=== PATIENT | female | born 1945 | race Caucasian/White ===

== ENCOUNTER → 2017-04-18 | Outpatient (CLI) | payer MEDICARE, OTHER ==
[~2017-04-18] MED LIST: ALPR1TAB10 SL; ALPR1TAB6 PO; ASCO1500 PO; ASPI-496 PO; CALC600T4 PO; CHOL100012 PO; DICL100G19 TP; Fish Oil; HYDR-3245 PO; LEVO50TA5 PO; MAGN400C PO; POTA10TA31 PO; SPIR50TA2 PO; SUMA25TA4 PO; TRIA1CAP3 PO
[2017-04-18 16:01] LABS: HEMATOCRIT 43.4 % (34.6-47.8); HEMOGLOBIN 14.5 g/dL (11.7-16.4); WHITE BLOOD COUNT 10.3 x10^3/uL (3.4-10)
[2017-04-18 16:11] LABS: BLOOD UREA NITROGEN 12 mg/dL (7-18)
[2017-04-18 16:15] LABS: ASPARTATE AMINO TRANSFERASE 13 U/L (15-37)
== END | disposition home or self-care (01) ==
LOC: STAR 14:31
PROVIDERS: ATTEND Neurological Surgery
DX: Z01.818 Encounter for other preprocedural examination (principal); I10 Essential (primary) hypertension; M43 Other deforming dorsopathies; R79.1 Abnormal coagulation profile; R82.79 Other abnormal findings on microbiological examination of urine; Z87.891 Personal history of nicotine dependence
CPT/HCPCS: 36415; 71020; 80053; 81001; 85025; 85610; 85730; 87086; 93005

== ENCOUNTER 2017-04-29 06:34 | Inpatient (IN) | payer OTHER ==
[~2017-04-29] VITALS: Ht 152.4 cm; Wt 58.2 kg
[~2017-04-29 06:34] MED LIST changes: +KETOROLAC 30 MG/1 ML ONE
[2017-04-29] MEDS ORDERED: LACTATED RINGERS 1,000 ML IV SCH (07:19)
[2017-04-29 07:24] VITALS: BP 116/77
[2017-04-29] MEDS ORDERED: KETAMINE 10 MG/ML, 20ML ONE (08:14)
[2017-04-29] MEDS ORDERED: MIDAZOLAM 1 MG/ML, 2ML ONE ×2 (08:15→12:39)
[2017-04-29] MEDS ORDERED: FENTANYL PF 100 MCG/2ML ONE ×3 (08:15→12:39)
[2017-04-29] MEDS ORDERED: PROPOFOL 10 MG/ML, 20ML ONE (08:18)
[2017-04-29] MEDS ORDERED: LIDOCAINE-MPF 2% ,5ML ONE (08:19)
[2017-04-29] MEDS ORDERED: ROCURONIUM 10 MG/ML ONE (08:20)
[2017-04-29] MEDS ORDERED: CEFAZOLIN 1,000 MG ONE (09:22)
[2017-04-29] MEDS ORDERED: ONDANSETRON 2MG/ML, 2ML ONE ×2 (09:49)
[2017-04-29] MEDS ORDERED: DEXAMETHASONE 4 MG/ML, 1ML ONE ×2 (09:50)
[2017-04-29] MEDS ORDERED: THROMBIN 5,000 UNIT VIAL TP ONE (10:11)
[2017-04-29] MEDS ORDERED: methylPREDNISolone SOD SUCC 125 MG/2 ML ONE (10:13)
[2017-04-29] MEDS ORDERED: VANCOMYCIN 1,000 MG ONE (10:13)
[2017-04-29] MEDS ORDERED: BUPIVACAINE/PF 0.5% INFIL ONE (10:16)
[2017-04-29] MEDS ORDERED: BACITRACIN 50,000 UNIT IRRIG ONE (10:16)
[2017-04-29] MEDS ORDERED: OXYcodone 5 MG/5 ML ORAL.SOL UDC PO PRN (10:30)
[2017-04-29] MEDS ORDERED: ACETAMINOPHEN 325 MG TABLET PO PRN (10:30)
[2017-04-29] MEDS ORDERED: MEPERIDINE/PF 25MG/0.5ML IVPush PRN (10:30)
[2017-04-29] MEDS ORDERED: DIAZEPAM 5 MG/ML, 2ML IVPush PRN (10:30)
[2017-04-29] MEDS ORDERED: hydrALAzine 20 MG/ML, 1ML IV PRN (10:30)
[2017-04-29] MEDS ORDERED: PROMETHAZINE 25 MG/ML, 1ML IV PRN (10:30)
[2017-04-29] MEDS ORDERED: LABETALOL 5MG/ML, 20ML IV PRN ×3 (10:30→16:30)
[2017-04-29] MEDS ORDERED: HYDROmorphone 1 MG/ML, 1ML ONE (11:38)
[2017-04-29] MEDS ORDERED: NEOSTIGMINE 1 MG/ML, 10ML ONE (11:40)
[2017-04-29] MEDS ORDERED: GLYCOPYRROLATE 0.4 MG/2 ML, 2ML ONE (11:40)
[2017-04-29] MEDS ORDERED: ACETAMINOPHEN 650 MG/20.3 ML UDC ONE (12:42)
[2017-04-29] MEDS ORDERED: OXYcodone 5 MG/5 ML ORAL.SOL UDC ONE (12:43)
[2017-04-29] MEDS ORDERED: HYDROmorphone 2 MG/ML, 1ML ONE (12:43)
[2017-04-29] MEDS ORDERED: METHOCARBAMOL 750 MG TABLET ONE (12:48)
[2017-04-29] MEDS: FENTANYL PF 100 MCG/2ML IV PRN ×2 (12:50→13:00)
[2017-04-29] MEDS: HYDROmorphone 1 MG/ML, 1ML IV PRN ×2 (12:50→13:05)
[2017-04-29] MEDS ORDERED: DIPHENHYDRAMINE 50 MG CAPSULE PO PRN (15:30)
[2017-04-29] MEDS ORDERED: PROMETHAZINE 25 MG/ML, 1ML IM PRN (15:30)
[2017-04-29] MEDS ORDERED: DIPHENHYDRAMINE 50 MG/ML, 1ML IVPush PRN (15:30)
[2017-04-29] MEDS ORDERED: HYDROcodone/APAP 10/325 MG TABLET PO PRN (15:30)
[2017-04-29] MEDS ORDERED: morphine SULFATE 10 MG/ML, 1ML IV PRN (15:30)
[2017-04-29] MEDS ORDERED: DIPHENHYDRAMINE 50 MG/ML, 1ML IM PRN (15:30)
[2017-04-29] MEDS ORDERED: BISACODYL 10 MG SUPP PR PRN (15:30)
[2017-04-29] MEDS ORDERED: HYDROcodone/APAP 5/325 TABLET PO PRN (15:30)
[2017-04-29] MEDS: NS + 20MEQ KCL 1,000 ML IV SCH (17:19)
[2017-04-29] MEDS: CEFAZOLIN PMX 1GM/50ML 50 ML IVPB SCH (17:25)
[2017-04-29 19:30] VITALS: BP 119/69
[2017-04-29] MEDS: METHOCARBAMOL 750 MG TABLET PO PRN (22:32)
[2017-04-30 00:02] VITALS: BP 90/50
[2017-04-30] MEDS: NS + 20MEQ KCL 1,000 ML IV SCH ×3 (01:30→21:05)
[2017-04-30] MEDS: CEFAZOLIN PMX 1GM/50ML 50 ML IVPB SCH (01:34)
[2017-04-30 03:30] VITALS: BP 93/57
[2017-04-30 05:22] LABS: HEMATOCRIT 31.6 % (34.6-47.8); HEMOGLOBIN 10.6 g/dL (11.7-16.4); WHITE BLOOD COUNT 11.9 x10^3/uL (3.4-10)
[2017-04-30 05:29] LABS: BLOOD UREA NITROGEN 13 mg/dL (7-18)
[2017-04-30] MEDS: LEVOTHYROXINE 50 MCG TABLET PO SCH (05:42)
[2017-04-30 07:40] VITALS: BP 92/45
[2017-04-30] MEDS: MAGNESIUM OXIDE 400 MG TABLET PO SCH (08:07)
[2017-04-30] MEDS: ASCORBIC ACID 500 MG TABLET PO SCH (08:07)
[2017-04-30] MEDS: SENNA/DOCUSATE TABLET PO SCH (08:07)
[2017-04-30] MEDS: CALCIUM CARBONATE 500 MG TABLET PO SCH (08:07)
[2017-04-30] MEDS: POTASSIUM CHLORIDE 10 MEQ TABLET.ER PO SCH (08:07)
[2017-04-30] MEDS: SPIRONOLACTONE 50 MG TABLET PO SCH (08:07)
[2017-04-30] MEDS: METHOCARBAMOL 750 MG TABLET PO PRN ×2 (08:20→16:10)
[2017-04-30] MEDS: TRIAMTERENE-HCTZ 37.5/25 MG TABLET PO SCH (09:00)
[2017-04-30] MEDS: ACETAMINOPHEN 325 MG TABLET PO SCH ×3 (09:30→21:30)
[2017-04-30] MEDS ORDERED: MORPHINE SULFATE 4 MG/ML, 1ML IV PRN (09:30)
[2017-04-30] MEDS: OXYcodone IR 5MG TABLET PO PRN ×3 (09:43→19:44)
[2017-04-30 12:40] VITALS: BP 109/65
[2017-04-30 14:57] VITALS: BP 104/61
[2017-04-30 20:25] VITALS: BP 101/61
[2017-05-01] MEDS: METHOCARBAMOL 750 MG TABLET PO PRN ×2 (01:52→10:50)
[2017-05-01] MEDS: ACETAMINOPHEN 325 MG TABLET PO SCH ×4 (02:38→21:18)
[2017-05-01] MEDS: OXYcodone IR 5MG TABLET PO PRN ×4 (05:13→18:17)
[2017-05-01] MEDS: LEVOTHYROXINE 50 MCG TABLET PO SCH (05:14)
[2017-05-01 05:21] LABS: HEMATOCRIT 33.2 % (34.6-47.8); HEMOGLOBIN 11.1 g/dL (11.7-16.4); WHITE BLOOD COUNT 11.4 x10^3/uL (3.4-10)
[2017-05-01 05:27] VITALS: BP 103/52
[2017-05-01 05:30] LABS: BLOOD UREA NITROGEN 11 mg/dL (7-18)
[2017-05-01] MEDS: NS + 20MEQ KCL 1,000 ML IV SCH ×2 (06:14→17:30)
[2017-05-01 08:58] VITALS: BP 88/49
[2017-05-01] MEDS: SPIRONOLACTONE 50 MG TABLET PO SCH (09:00)
[2017-05-01] MEDS: MAGNESIUM HYDROXIDE 8%, 30ML UDC PO PRN (09:00)
[2017-05-01] MEDS: POTASSIUM CHLORIDE 10 MEQ TABLET.ER PO SCH (09:00)
[2017-05-01] MEDS: SENNA/DOCUSATE TABLET PO SCH (09:01)
[2017-05-01] MEDS: ASCORBIC ACID 500 MG TABLET PO SCH (09:01)
[2017-05-01] MEDS: MAGNESIUM OXIDE 400 MG TABLET PO SCH (09:02)
[2017-05-01] MEDS: CALCIUM CARBONATE 500 MG TABLET PO SCH (09:02)
[2017-05-01] MEDS: TRIAMTERENE-HCTZ 37.5/25 MG TABLET PO SCH (09:02)
[2017-05-01 14:30] VITALS: BP 89/44
[2017-05-01] MEDS ORDERED: SODIUM CHLORIDE 0.9%, 500ML IVBOLUS ONE (16:00)
[2017-05-01] MEDS: ONDANSETRON 2MG/ML, 2ML IV PRN ×2 (16:32→22:56)
[2017-05-01 17:15] VITALS: BP 99/60
[2017-05-01 19:36] VITALS: BP 100/60
[2017-05-02 01:47] VITALS: BP 109/62
[2017-05-02] MEDS: ACETAMINOPHEN 325 MG TABLET PO SCH ×4 (03:30→20:53)
[2017-05-02] MEDS: NS + 20MEQ KCL 1,000 ML IV SCH ×3 (03:30→20:49)
[2017-05-02] MEDS: LEVOTHYROXINE 50 MCG TABLET PO SCH (06:10)
[2017-05-02 07:03] VITALS: BP 108/64
[2017-05-02] MEDS ORDERED: METHYLNALTREXONE 12 MG/0.6 ML SQ SCH (08:00)
[2017-05-02] MEDS: ASCORBIC ACID 500 MG TABLET PO SCH (09:00)
[2017-05-02] MEDS: SENNA/DOCUSATE TABLET PO SCH (09:00)
[2017-05-02] MEDS: MAGNESIUM OXIDE 400 MG TABLET PO SCH (09:00)
[2017-05-02] MEDS: CALCIUM CARBONATE 500 MG TABLET PO SCH (09:00)
[2017-05-02] MEDS: POTASSIUM CHLORIDE 10 MEQ TABLET.ER PO SCH (09:00)
[2017-05-02] MEDS: ONDANSETRON 2MG/ML, 2ML IV PRN (09:23)
[2017-05-02] MEDS: MAGNESIUM HYDROXIDE 8%, 30ML UDC PO PRN (09:43)
[2017-05-02] MEDS: SPIRONOLACTONE 50 MG TABLET PO SCH (09:43)
[2017-05-02] MEDS: TRIAMTERENE-HCTZ 37.5/25 MG TABLET PO SCH (09:43)
[2017-05-02] MEDS: OXYcodone IR 5MG TABLET PO PRN ×2 (13:00→20:52)
[2017-05-02] MEDS: METHOCARBAMOL 750 MG TABLET PO PRN (13:00)
[2017-05-02 13:53] VITALS: BP 118/69
[2017-05-02 20:11] VITALS: BP 107/64
[2017-05-03] MEDS: ACETAMINOPHEN 325 MG TABLET PO SCH ×2 (02:30→09:30)
[2017-05-03 03:28] VITALS: BP 102/62
[2017-05-03] MEDS: METHOCARBAMOL 750 MG TABLET PO PRN (03:28)
[2017-05-03] MEDS: OXYcodone IR 5MG TABLET PO PRN ×2 (03:28→07:22)
[2017-05-03] MEDS ORDERED: METHYLNALTREXONE 12 MG/0.6 ML SQ SCH (06:00)
[2017-05-03] MEDS: LEVOTHYROXINE 50 MCG TABLET PO SCH (06:01)
[2017-05-03 07:10] VITALS: BP 93/55
[2017-05-03] MEDS: CALCIUM CARBONATE 500 MG TABLET PO SCH (07:22)
[2017-05-03] MEDS: SPIRONOLACTONE 50 MG TABLET PO SCH (07:22)
[2017-05-03] MEDS: POTASSIUM CHLORIDE 10 MEQ TABLET.ER PO SCH (07:22)
[2017-05-03] MEDS: ASCORBIC ACID 500 MG TABLET PO SCH (07:22)
[2017-05-03] MEDS: TRIAMTERENE-HCTZ 37.5/25 MG TABLET PO SCH (07:22)
[2017-05-03] MEDS: SENNA/DOCUSATE TABLET PO SCH (07:22)
[2017-05-03] MEDS: MAGNESIUM OXIDE 400 MG TABLET PO SCH (07:22)
[2017-05-03] MEDS ORDERED: METHYLNALTREXONE 12 MG/0.6 ML SQ ONE (09:00)
[2017-05-03] MEDS: NS + 20MEQ KCL 1,000 ML IV SCH (09:30)
[2017-05-03] MEDS ORDERED: METH750T2 PO (10:55)
[2017-05-03] MEDS ORDERED: OXYC-307 PO (10:55)
== END 2017-05-03 11:07 | disposition home health service (06) | DRG 460 ==
LOC: ORIP 06:34 → 4NOR 14:29 → DCLOUNGE 05-03 10:50
PROVIDERS: ADMIT Neurological Surgery; ATTEND Neurological Surgery
PROC: 0SB20ZZ Excision of Lumbar Vertebral Disc, Open Approach (ICD-10-PCS; 2017-04-29)
PROC: 0SG00AJ Fusion of Lumbar Vertebral Joint with Interbody Fusion Device, Posterior Approach, Anterior Column, Open Approach (ICD-10-PCS; 2017-04-29)
PROC: 0QS004Z Reposition Lumbar Vertebra with Internal Fixation Device, Open Approach (ICD-10-PCS; 2017-04-29)
PROC: 01NB0ZZ Release Lumbar Nerve, Open Approach (ICD-10-PCS; principal; 2017-04-29 09:30)
DX: M43.16 Spondylolisthesis, lumbar region (principal); K56.7 Ileus, unspecified; M48.061 Spinal stenosis, lumbar region without neurogenic claudication; G43.909 Migraine, unspecified, not intractable, without status migrainosus; M19.90 Unspecified osteoarthritis, unspecified site; M79.7 Fibromyalgia; F17.210 Nicotine dependence, cigarettes, uncomplicated; M54.16 Radiculopathy, lumbar region; E03.9 Hypothyroidism, unspecified; I10 Essential (primary) hypertension; F12.10 Cannabis abuse, uncomplicated; Z90.710 Acquired absence of both cervix and uterus; Z88.6 Allergy status to analgesic agent; Z91.19 Patient's noncompliance with other medical treatment and regimen; Z88.8 Allergy status to other drugs, medicaments and biological substances; Z85.89 Personal history of malignant neoplasm of other organs and systems; Z80.8 Family history of malignant neoplasm of other organs or systems; Z82.61 Family history of arthritis
CPT/HCPCS: 36415; 72100; 74000; 80048; 82962; 83735; 85025; 86850; 86900; C1713; C1776; J0690; J1100; J1170; J1885; J2250; J2270; J2405; J2704; J2710; J3010; J3370; J3480; J3490; C1762; J2930; J7040; J7120

== ENCOUNTER 2017-11-30 13:29 | Emergency (ER) | payer OTHER ==
[~2017-11-30] VITALS: Ht 157.5 cm; Wt 49.1 kg
[~2017-11-30 13:29] MED LIST changes: -KETOROLAC 30 MG/1 ML ONE; +METH750T2 PO; +OXYC-307 PO
[2017-11-30] MEDS ORDERED: ASPIRIN 81 MG TABLET CHEW PO ONE (14:00)
[2017-11-30 14:44] LABS: BASOPHILS # (AUTO) 0.02 x10^3/uL (0-0.1); BASOPHILS % (AUTO) 0 % (0-1); EOSINOPHILS # (AUTO) 0.08 x10^3/uL (0-0.4); EOSINOPHILS % (AUTO) 1 % (1-7); HCT (SEDRATE) 40.7 % (34.6-47.8); LYMPHOCYTES # (AUTO) 1.16 x10^3/uL (1-3.4); LYMPHOCYTES % (AUTO) 16 % (22-44); MD NO; MEAN CORPUSCULAR HEMOGLOBIN 29.8 pg (27.0-34.8); MEAN CORPUSCULAR HGB CONC 33.5 g/dL (32.4-35.8); MEAN CORPUSCULAR VOLUME 88.8 fL (80-100); MEAN PLATELET VOLUME 7.7 fL (7.4-10.4); MONOCYTES # (AUTO) 0.44 x10^3/uL (0.2-0.8); MONOCYTES % (AUTO) 6 % (2-9); NEUTROPHILS # (AUTO) 5.57 x10^3/uL (1.8-6.8); NEUTROPHILS % (AUTO) 77 % (42-75); PLATELET COUNT 275 x10^3/uL (130-400); RED BLOOD COUNT 4.58 x10^6/uL (3.82-5.3); RED CELL DISTRIBUTION WIDTH 13.9 % (9.6-15.2)
[2017-11-30] MEDS ORDERED: HYDR-879 PO (14:50)
[2017-11-30] MEDS ORDERED: ASPIRIN 81 MG TABLET CHEW ONE (14:54)
[2017-11-30 14:57] LABS: ALBUMIN 3.1 g/dL (3.4-5.0); ANION GAP 7 mmol/L (5-15); CALCIUM 8.8 mg/dL (8.5-10.1); CHLORIDE 103 mmol/L (98-107)
[2017-11-30 15:02] LABS: ALANINE AMINOTRANSFERASE 17 U/L (12-78); ALKALINE PHOSPHATASE 79 U/L (45-117); BILIRUBIN,TOTAL 0.5 mg/dL (0.2-1.0); CREATININE 0.87 mg/dL (0.55-1.02); FREE T4 (FREE THYROXINE) 1.28 ng/dL (0.76-1.46); TOTAL PROTEIN 7.1 g/dL (6.4-8.2); TROPONIN I < 0.015 ng/mL (0.000-0.045)
[2017-11-30] MEDS ORDERED: VOLTAREN (15:09)
[2017-11-30 15:25] LABS: SEDIMENTATION RATE 38 mm/hr (0-20)
[2017-11-30 16:25] VITALS: BP 107/60
== END 2017-11-30 16:31 | disposition home or self-care (01) ==
LOC: ED 15:39
DX: R07.89 Other chest pain (principal); M19.012 Primary osteoarthritis, left shoulder; M19.011 Primary osteoarthritis, right shoulder; M19.071 Primary osteoarthritis, right ankle and foot; M19.041 Primary osteoarthritis, right hand; E06.9 Thyroiditis, unspecified; Z88.5 Allergy status to narcotic agent; Z88.8 Allergy status to other drugs, medicaments and biological substances
CPT/HCPCS: 36415; 71045; 80053; 83880; 84439; 84443; 84484; 85025; 85651; 93005; 99285